=== PATIENT | male | born 1985 | race Two or more races ===

== ENCOUNTER → 2017-01-09 | Outpatient (CLI) | payer BC | LOC: FIMAGING 10:48 | PROVIDERS: ATTEND Physician Assistant | DX: M54.2 Cervicalgia (principal) ==

== ENCOUNTER → 2017-01-25 | Outpatient (CLI) | payer BC | LOC: FIMAGING 07:54 | PROVIDERS: ATTEND Physician Assistant | DX: M54.2 Cervicalgia (principal) ==

== ENCOUNTER 2017-04-28 21:29 | Emergency (ER) | payer BC ==
[2017-04-28 21:42] VITALS: O2SAT 96
[2017-04-28] MEDS ORDERED: HYOSCYAMINE SULFATE 0.125 MG TAB PO ONE (21:57)
[2017-04-28] MEDS ORDERED: NS 1,000 ML IV ONE (21:57)
[2017-04-28] MEDS ORDERED: ONDANSETRON 4 MG/2 ML VIAL IVP ONE (21:57)
[2017-04-28] MEDS ORDERED: MAG HYDROX/AL HYDROX/SIMETH 30 ML UDCUP PO ONE (21:57)
[2017-04-28] MEDS ORDERED: LIDOCAINE 2% VISCOUS 15 ML UDCUP PO ONE (21:57)
--- NOTE | 2017-04-28 21:59 | EDPHY ---
H & P Stated Complaint: pt c/o dry mouth and being hungry all the time- on prednisone Time Seen by Provider: 04/28/17 21:47 HPI/ROS: CHIEF COMPLAINT: Abdominal pain, dyspepsia HISTORY OF PRESENT ILLNESS: The patient presents to the ED with complaints of abdominal pain and dyspepsia. The patient has a history of neck pain which has been treated with Solu-Medrol and prednisone. His symptoms began shortly after that therapy. He denies melena or hematemesis. The patient denies any prior history of abdominal surgery. He complains of associated dry mouth and generalized weakness. The patient states that his abdominal pain is typically improved with food. He denies any fever, cough or congestion. The patient denies any additional acute complaints. REVIEW OF SYSTEMS: A comprehensive 10 point review of systems is otherwise negative aside from elements mentioned in the history of present illness. Source: Patient Exam Limitations: No limitations - Personal History Current Tetanus Diphtheria and Acellular Pertussis (TDAP): Unsure - Medical/Surgical History Hx Asthma: No Hx Chronic Respiratory Disease: No Hx Diabetes: No Hx Cardiac Disease: No Hx Renal Disease: No Hx Cirrhosis: No Hx Alcoholism: No Hx HIV/AIDS: No Hx Splenectomy or Spleen Trauma: No Other PMH: shoulder pain, ganglion cysts - Social History Smoking Status: Never smoked - Physical Exam Exam: General Appearance: Alert, slightly anxious Eyes: Pupils equal and round no pallor or injection ENT, Mouth: Dry mucous membranes Respiratory: There are no retractions, lungs are clear to auscultation Cardiovascular: Regular rate and rhythm Gastrointestinal: Minimal epigastric tenderness, no rebound, no guarding, no right lower quadrant tenderness or peritoneal symptoms Neurological: A&O, normal motor function, normal sensory exam, normal cranial nerves Skin: Warm and dry, no rashes Musculoskeletal: Neck is supple nontender Extremities: symmetrical, full range of motion Constitutional: Initial Vital Signs Temperature (C) 36.4 C 04/28/17 21:39 Heart Rate 71 04/28/17 21:39 Respiratory Rate 18 04/28/17 21:39 Blood Pressure 140/90 H 04/28/17 21:39 O2 Sat (%) 96 04/28/17 21:39 O2 Delivery Mode Room Air Allergies/Adverse Reactions: No Known Allergies Allergy (Unverified 04/28/17 21:37) Home Medications: Medication Instructions Recorded Methylprednisolone 04/28/17 Ondansetron Odt [Zofran Odt] 4 mg PO Q4PRN PRN #20 tab 04/28/17 Ranitidine HCl [Zantac] 150 mg PO BID #60 tablet 04/28/17 Medical Decision Making ED Course/Re-evaluation: The patient presents to the ED with complaints of dyspepsia and abdominal pain improved with the ED after taking steroids for neck pain. The patient has no evidence of any acute blood loss. The patient's liver function test and lipase are within normal limits. The patient had an IV established. He received a GI cocktail and Zofran. This point time I have encouraged the patient to stop taking steroids. He will be advised to take Zantac and Zofran as needed for his symptoms. 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 He should return to the ED for severe abdominal pain, fever, vomiting, melena or other concerns. Differential Diagnosis: Differential diagnosis considered includes gastritis, peptic ulcer disease, pancreatitis, hepatitis, cholecystitis - Data Points Laboratory Results: Laboratory Results 04/28/17 22:17 04/28/17 22:17 04/28/17 04/28/17 22:17 22:17 WBC 5.58 10^3/uL 10^3/uL (3.80-9.50) RBC 5.07 10^6/uL 10^6/uL (4.40-6.38) Hgb 15.9 g/dL g/dL (13.7-17.5) Hct 45.3 % % (40.0-51.0) MCV 89.3 fL fL (81.5-99.8) MCH 31.4 pg pg (27.9-34.1) MCHC 35.1 g/dL g/dL (32.4-36.7) RDW 12.5 % % (11.5-15.2) Plt Count 165 10^3/uL 10^3/uL (150-400) MPV 11.6 fL fL (8.7-11.7) Neut % (Auto) 55.6 % % (39.3-74.2) Lymph % (Auto) 36.0 % % (15.0-45.0) [place] % (Auto) 6.6 % % (4.5-13.0) Eos % (Auto) 0.5 % L % (0.6-7.6) Baso % (Auto) 0.9 % % (0.3-1.7) Nucleat RBC Rel Count 0.0 % % (0.0-0.2) Absolute Neuts (auto) 3.10 10^3/uL 10^3/uL (1.70-6.50) Absolute Lymphs (auto) 2.01 10^3/uL 10^3/uL (1.00-3.00) Absolute Monos (auto) 0.37 10^3/uL 10^3/uL (0.30-0.80) Absolute Eos (auto) 0.03 10^3/uL 10^3/uL (0.03-0.40) Absolute Basos (auto) 0.05 10^3/uL 10^3/uL (0.02-0.10) Absolute Nucleated RBC 0.00 10^3/uL 10^3/uL (0-0.01) Immature Gran % 0.4 % % (0.0-1.1) Immature Gran # 0.02 10^3/uL 10^3/uL (0.00-0.10) Sodium 141 mEq/L mEq/L (134-144) Potassium 4.2 mEq/L mEq/L (3.5-5.2) Chloride 108 mEq/L mEq/L (97-110) Carbon Dioxide 22 mEq/l mEq/l (22-31) Anion Gap 11 mEq/L mEq/L (8-16) BUN 16 mg/dL mg/dL (7-23) Creatinine 0.9 mg/dL mg/dL (0.7-1.3) Estimated GFR > 60 Glucose 91 mg/dL mg/dL (70-100) Calcium 9.1 mg/dL mg/dL (8.5-10.4) Total Bilirubin 0.5 mg/dL mg/dL (0.1-1.4) Conjugated Bilirubin 0.2 mg/dL mg/dL (0.0-0.5) Unconjugated Bilirubin 0.3 mg/dL mg/dL (0.0-1.1) AST 28 IU/L IU/L (17-59) ALT 41 IU/L IU/L (21-72) Alkaline Phosphatase 49 IU/L IU/L (38-126) Total Protein 7.1 g/dL g/dL (6.3-8.2) Albumin 4.1 g/dL g/dL (3.5-5.0) Lipase 109 IU/L IU/L (23-300) Medications Given: Discontinued Medications Al Hydroxide/Mg Hydroxide (Maalox Susp) 30 ml PO ONCE ONE Stop: 04/28/17 21:58 Last Admin: 04/28/17 22:32 Dose: 30 ml Hyoscyamine Sulfate (Levsin, Hyomax-Sl) 0.25 mg PO ONCE ONE Stop: 04/28/17 21:58 Last Admin: 04/28/17 22:31 Dose: 0.25 mg Sodium Chloride (Ns) 1,000 mls @ 0 mls/hr IV EDNOW ONE; Wide Open PRN Reason: Protocol Stop: 04/28/17 21:58 Last Admin: 04/28/17 22:31 Dose: 1,000 mls Lidocaine (Lidocaine 2% Viscous) 15 ml PO ONCE ONE Stop: 04/28/17 21:58 Last Admin: 04/28/17 22:32 Dose: 15 ml Ondansetron HCl (Zofran) 4 mg IVP EDNOW ONE Stop: 04/28/17 21:58 Last Admin: 04/28/17 22:32 Dose: 4 mg Departure - Departure Disposition: Home, Routine, Self-Care Clinical Impression: Gastritis Condition: Good Instructions: Gastritis (ED) Additional Instructions: 1. Please take medications as prescribed including ranitidine for your upset stomach and Zofran as needed for nausea. 2. Please schedule a follow-up appointment with your primary care provider for recheck next week for any unimproved symptoms. 3. Please return to the ED for severe pain, fever, vomiting or other concerns.
[2017-04-28 22:35] LABS: % IMMATURE GRANULYOCYTES 0.4 % (0.0-1.1); ABSOLUTE IMMATURE GRANULOCYTES 0.02 10^3/uL (0.00-0.10); ADD DIFF? NO; ADD MORPH? NO; ADD SCAN? NO; ATYPICAL LYMPHOCYTE FLAG 10 (0-99); FRAGMENT RBC FLAG 0 (0-99); HEMATOCRIT 45.3 % (40.0-51.0); HEMOGLOBIN 15.9 g/dL (13.7-17.5); LEFT SHIFT FLG 0 (0-99); LIPEMIA HEMOLYSIS FLAG 90 (0-99); MEAN CELL HEMOGLOBIN 31.4 pg (27.9-34.1); MEAN CELL HEMOGLOBIN CONCENTR. 35.1 g/dL (32.4-36.7); MEAN CELL VOLUME 89.3 fL (81.5-99.8); MEAN PLATELET VOLUME 11.6 fL (8.7-11.7); PLATELET CLUMPS FLAG 10 (0-99); PLATELET COUNT 165 10^3/uL (150-400); RED BLOOD CELL COUNT 5.07 10^6/uL (4.40-6.38); RED CELL DISTRIBUTION WIDTH 12.5 % (11.5-15.2)
[2017-04-28 22:45] LABS: ALANINE AMINOTRANSFERASE 41 IU/L (21-72); ALBUMIN 4.1 g/dL (3.5-5.0); ALKALINE PHOSPHATASE 49 IU/L (38-126); ANION GAP 11 mEq/L (8-16); ASPARTATE AMINOTRANSFERASE 28 IU/L (17-59); BILIRUBIN,TOTAL 0.5 mg/dL (0.1-1.4); BILIRUBIN-CONJUGATED 0.2 mg/dL (0.0-0.5); BILIRUBIN-UNCONJUGATED 0.3 mg/dL (0.0-1.1); CALCIUM 9.1 mg/dL (8.5-10.4); CARBON DIOXIDE 22 mEq/l (22-31); CHLORIDE 108 mEq/L (97-110); CREATININE 0.9 mg/dL (0.7-1.3); GLOMERULAR FILTRATION RATE > 60; GLUCOSE 91 mg/dL (70-100); POTASSIUM 4.2 mEq/L (3.5-5.2); SODIUM 141 mEq/L (134-144); TOTAL PROTEIN 7.1 g/dL (6.3-8.2)
[2017-04-28 23:14] VITALS: BP 129/93; PULSE 54; RESP 16; TEMP 98.2
== END 2017-04-28 23:12 | disposition home or self-care (01) ==
DX: K29.70 Gastritis, unspecified, without bleeding (principal); E86.9 Volume depletion, unspecified
CPT/HCPCS: 96374; J2405

== ENCOUNTER → 2017-10-10 | Outpatient (CLI) | payer BC | LOC: FIMAGING 10:36 | PROVIDERS: ATTEND Nurse Practitioner Family | DX: R10.13 Epigastric pain (principal) ==

== ENCOUNTER → 2017-11-10 | Outpatient (CLI) | payer BC | LOC: FIMAGING 07:46 | PROVIDERS: ATTEND Psychiatry & Neurology Neurology | DX: R43.8 Other disturbances of smell and taste (principal) ==